=== PATIENT | female | born 1995 | race Caucasian/White ===

== ENCOUNTER 2024-09-19 06:54 | Emergency (ER) | payer MEDICAID, SELFPAY ==
[2024-09-19 06:55] VITALS: BP 122/89; PULSE 85; RESP 18; TEMP 36.4; O2SAT 99; BMI 27.4
[2024-09-19 07:01] VITALS: BP 122/89; PULSE 85; RESP 18; TEMP 36.4; O2SAT 95
--- NOTE | 2024-09-19 07:06 | EX.ED.DYSGE1 ---
HPI History of Present Illness Chief Complaint: Abscess [facility] Medical History (Updated 01/20/24 @ 11:24 by Cecil MEJIA, PA) Physical exam, pre-employment Medical History no medical history Home Medications ?Medication ?Instructions ?Recorded ?Last Taken ?Type NK 09/19/24 Unknown History Allergy/AdvReac Type Severity Reaction Status Date / Time No Known Allergies Allergy Verified 09/19/24 07:01 Social History Smoking Status: Never smoker EXAM Physical Exam Const Vital Signs: 09/19/24 06:55 09/19/24 07:01 Temperature 97.6 F L 97.6 F L Temperature Source Oral Oral Pulse Rate 85 85 Respiratory Rate 18 18 Blood Pressure 122/89 H 122/89 H Blood Pressure Mean 100 100 Pulse Ox 99 95 Oxygen Delivery Method Room Air Room Air MDM MDM MDM Narrative Medical decision making narrative: HISTORY OF PRESENT ILLNESS: 29-year-old female presents with concern for abscess. Notes she came from work secondary to concern for abscess in her coccyx area. She has been taking amoxicillin which has not improved her symptoms. REVIEW OF SYSTEMS: Pertinent positives: Abscess Pertinent negatives: Fever, vomiting, weakness PHYSICAL EXAM: Nursing triage notes reviewed, Vital signs reviewed Constitutional: please see mdm Back: Performed weather teacher in room Abhishek White RN, there is area of induration noted just at the gluteal cleft consistent with pilonidal cyst. Performed bedside ultrasound which showed an area consistent with abscess proximately 1 cm? in volume. There is no Doppler flow noted in this area. There is no obvious rectal involvement noted. Neuro: No focal neurological deficits, cranial nerves II through XII intact, 5/5 strength in all extremities. Intact sensation to light touch in all extremities, 2+ reflexes bilateral patella tendons. Normal gait. No ataxia. Skin: Erythema noted at the gluteal cleft approximately 5 x 5 cm area MEDICAL DECISION MAKING: Chief Complaint: Abscess External records reviewed: Reviewed prior allergies, problem list, vital signs, current medications Factors affecting care: none Social determinants of health: none History obtained from others: none Consults: none [facility] Narrative: Patient was initially hemodynamically stable, afebrile and nontoxic-appearing. Exam consistent with bilateral cyst I considered the following differential diagnosis: Abscess, cellulitis, pilonidal cyst After bedside ultrasound was consistent with likely abscess versus pilonidal cyst incision and drainage was undertaken. Incision and drainage was undertaken and expectorated approximately 2 cc of purulent fluid. Area was cleansed. Oral antibiotics were given here for home-going. Return precautions were discussed Procedure: Incision and Drainage simple abscess, pilonidal cyst The procedure was performed by myself. Location: Gluteal cleft Risks and benefits: Risks, benefits, and alternatives were discussed. Questions were sought and answered, and verbal consent provided for the procedure. Anesthesia: 1% lidocaine with epinephrine Procedure Description: Area was anesthetized, 11 blade was used to santiago the skin, area was deloculated, noted drainage approximately 2 cc of purulent fluid. Area was then cleansed again, irrigated. The patient tolerated the procedure well without complications. The patient and/or family, caregivers express understanding. The patient and/or family, caregivers agrees with the plan. Shared decision making: I will have a discussion with the patient and or visitors regarding risk/benefits of further testing or admission. They will be made aware of of the risk/benefits inherent in this decision they will be given the opportunity to voice understanding. Total critical care time today provided was at least 0 [] minutes. This excludes separately billable procedures. Critical care time (if documented) is secondary to the patient having high probability of clinically significant/life threatening deterioration in the patient's condition which required my urgent intervention. Impression: 1. Pilonidal cyst 2. Gluteal cleft Cellulitis Dispo: Discharge This note was generated with [employer] dictation software. It may contain incorrect words, spelling, and punctuation that were not noted in review of the chart prior to signing. Discharge Plan Triage Chief Complaint: Abscess ED Provider: Will Holloway Dx/Rx/DC Orders Prescriptions: No Action NK Primary Care Provider: Zakia Shine Referrals: Zakia Shine MD [Primary Care Provider] - Print Language: Mosotho
[2024-09-19] MEDS: Smz/Tmp Ds Tablet 1 TABLET PO (07:43)
[2024-09-19] MEDS: Acetaminophen 325 MG Tablet 650 MG PO (07:43)
== END 2024-09-19 07:57 | disposition home or self-care (01) ==
PROVIDERS: Emergency Provider Emergency Medicine; Visit Provider Emergency Medicine
DX: L03.317 Cellulitis of buttock (principal); L05.91 Pilonidal cyst without abscess
CPT/HCPCS: 10080; 99282